=== PATIENT | female | born 1940 | race Caucasian/White ===

== ENCOUNTER 2016-06-14 16:04 | Inpatient (IN) | payer MEDICARE, OTHER ==
[2016-06-15 04:22] LABS: HCT 29.6 % (37.0-47.0); HGB 9.9 g/dl (12.5-16.0); MCH 30.5 pg (25.0-31.0); MCHC 33.4 g/dL (32.0-36.0); MCV 91.1 fL (78.0-100.0); MPV 8.9 fL (6.0-9.5); RBC 3.25 M/uL (4.20-5.40); WBC 8.2 K/uL (4.0-10.5)
[2016-06-15 04:37] LABS: CREATININE 0.6 mg/dL (0.5-1.0); POTASSIUM 4.1 mmol/L (3.5-5.1)
--- NOTE | 2016-06-15 05:27 | NUR ---
LATE ENTRY: NOTIFIED AT 0448, PT UNABLE TO VOID. PT WAS BLADDER SCANNED-SHOWED 194ML OF URINE. PT IS NOT IN ANY DISTRESS, BUT HAS NOT VOIDED SINCE COMING BACK FROM SURGERY. ORDER FOR NS 500ML BOLUS X1 GIVEN.
[2016-06-16 06:27] LABS: HCT 27.8 % (37.0-47.0); HGB 9.2 g/dl (12.5-16.0); MCH 30.7 pg (25.0-31.0); MCHC 33.1 g/dL (32.0-36.0); MCV 92.7 fL (78.0-100.0); MPV 9.1 fL (6.0-9.5); RDW 13.2 % (11.5-14.0); WBC 8.1 K/uL (4.0-10.5)
[2016-06-16 06:55] LABS: CREATININE 0.6 mg/dL (0.5-1.0)
[2016-06-17 05:06] LABS: HCT 28.9 % (37.0-47.0); HGB 9.4 g/dl (12.5-16.0); MCH 30.3 pg (25.0-31.0); MCHC 32.5 g/dL (32.0-36.0); MCV 93.2 fL (78.0-100.0); MPV 9.3 fL (6.0-9.5); RBC 3.1 M/uL (4.20-5.40); RDW 13.1 % (11.5-14.0); WBC 8.7 K/uL (4.0-10.5)
[2016-06-17 05:44] LABS: CREATININE 0.6 mg/dL (0.5-1.0); POTASSIUM 4.1 mmol/L (3.5-5.1)
[2016-06-17] MEDS ORDERED: DIGITEK250 MCG PO (11:59)
[2016-06-17] MEDS ORDERED: FEOSOL325 MG PO (11:59)
[2016-06-17] MEDS ORDERED: ASPIRIN CHEWABL81 MG PO (11:59)
[2016-06-17] MEDS ORDERED: ZESTRIL5 MG PO (12:00)
[2016-06-17] MEDS ORDERED: TENORMIN50 MG PO (12:00)
[2016-06-17] MEDS ORDERED: SYNTHROID100 MCG PO (12:00)
[2016-06-17] MEDS ORDERED: MOBIC7.5 MG PO (12:00)
[2016-06-17] MEDS ORDERED: STRESS FORMULA1 EACH PO (12:01)
[2016-06-17] MEDS ORDERED: CERTAGEN1 EACH PO (12:01)
[2016-06-17] MEDS ORDERED: MIRALAX17 GM PO (12:01)
[2016-06-17] MEDS ORDERED: BIOTIN1000 MCG PO (12:02)
[2016-06-17] MEDS ORDERED: XARELTO10 MG PO (12:02)
[2016-06-17] MEDS ORDERED: ZOFRAN4 MG PO (12:03)
== END 2016-06-17 13:45 | disposition home or self-care (01) | DRG 470 ==
LOC: FMS 16:04
PROVIDERS: Internal Medicine; ADMIT Legal Medicine
PROC: 0SR904A Replacement of Right Hip Joint with Ceramic on Polyethylene Synthetic Substitute, Uncemented, Open Approach (ICD-10-PCS; principal; 2016-06-14 13:30)
DX: M16.11 Unilateral primary osteoarthritis, right hip (principal); G61.0 Guillain-Barre syndrome; I48.0 Paroxysmal atrial fibrillation; D62 Acute posthemorrhagic anemia; K59.00 Constipation, unspecified; I10 Essential (primary) hypertension; E03.9 Hypothyroidism, unspecified; Z86.711 Personal history of pulmonary embolism; Z83.3 Family history of diabetes mellitus; Z82.49 Family history of ischemic heart disease and other diseases of the circulatory system; Z79.82 Long term (current) use of aspirin; Z79.899 Other long term (current) drug therapy
CPT/HCPCS: 36415; 73501; 76000; 80048; 86850; 86900; 86901; 88304; 88311; 94010; 94762; 97110; 97116; 97162; 97165; 97530; 97530-GP; 97535; C1776; J0131; J0697; J1170; J1756; J1885; J2270; J2405; J2704; J2710; J2795; J3010